=== PATIENT | male | born 1995 | race African-American/Black ===

== ENCOUNTER 2016-04-08 07:56 | Emergency (ER) | payer BC, MEDICAID ==
[2016-04-08] MEDS ORDERED: ONDANSETRON ODT 4 MG TAB ONE (08:16)
== END 2016-04-08 08:48 | disposition home or self-care (01) ==
LOC: ER 07:56
DX: R11.2 Nausea with vomiting, unspecified (principal); R10.10 Upper abdominal pain, unspecified
CPT/HCPCS: 74022